=== PATIENT | male | born 1970 | race Caucasian/White ===

== ENCOUNTER 2018-12-06 17:12 | Emergency (ER) | payer MEDICAID ==
[2018-12-06] MEDS ORDERED: Lidocaine 1% 30 ML SDV INJECT ONE (17:27)
--- NOTE | 2018-12-06 18:44 | EDM.PDOC ---
ED HPI GENERAL MEDICAL PROBLEM - General Chief Complaint: Laceration Time Seen by Provider: 12/06/18 17:20 Source of Information: Reports: Patient History Limitations: Reports: No Limitations - History of Present Illness INITIAL COMMENTS - FREE TEXT/NARRATIVE: PtTonio presents to ER with complaints of a high-speed angle sample tester grinder injury to dorsum of L index finger. He states that his tetanus is UTD. He states that he lives in [place] but did not stop on [place] because he doesn't like that ER. He states that he is experiencing severe discomfort. He states that his ROM is within normal limits in the digit. Denies any numbness/tingling in the distal portion of the extremity. Onset: Today Onset Date: 12/06/18 Location: Reports: Upper Extremity, Left Quality: Reports: Sharp Severity: Severe - Related Data Allergies Allergy/AdvReac Type Severity Reaction Status Date / Time ketorolac [From Toradol] Allergy Hives Verified 12/06/18 18:45 Home Meds: Home Meds Gabapentin [Neurontin] 600 mg PO QID 07/02/16 [History] LORazepam [Ativan] 0.5 mg PO BID 07/02/16 [History] oxyCODONE HCl/Acetaminophen [Oxycodone-Acetaminophen 5-325] 1 each PO Q4HR PRN 07/02/16 [History] Past Medical History Neurological History: Reports: Seizure Psychiatric History: Reports: Anxiety, Depression, Schizophrenia - Infectious Disease History Infectious Disease History: Reports: Hepatitis C - Past Surgical History Musculoskeletal Surgical History: Reports: Other (See Below) Social & Family History - Caffeine Use Caffeine Use: Reports: Soda ED ROS GENERAL - Review of Systems Review Of Systems: ROS reveals no pertinent complaints other than HPI. ED EXAM, SKIN/RASH Exam: See Below Exam Limited By: No Limitations General Appearance: Alert, WD/WN, No Apparent Distress Extremities: Normal Capillary Refill, Other (1 cm laceration across dorsal proximal phalynx between MCP and PIP. No joint involvement. CMS intact. wound edges were macerated.) Skin: Warm, Dry, Intact, Normal Color, No Rash ED SKIN PROCEDURES - Laceration/Wound Repair Left Proximal Dorsal Digit - 2nd (Index) Lac/Wound length In cm: 1 Appearance: Linear, Mildly Contaminated Distal NVT: Neuro & Vascular Intact, No Tendon Injury Anesthetic Type: Local Local Anesthesia - Lidocaine (Xylocaine): 1% Plain Local Anesthetic Volume: 5cc Skin Prep: Chlorhexidine (Hibiciens), Saline Exploration/Debridement/Repair: Wound Explored, Minimal Debridement, Foreign Material Removed, Wound Margins Revised Closed with: Sutures Suture Size: 4-0 Suture Type: Nylon Course - Orders/Labs/Meds Meds: Medications Discontinued Medications Generic Name Dose Route Start Last Admin Trade Name Mary Ellen PRN Reason Stop Dose Admin Lidocaine HCl 30 ml 12/06/18 17:27 12/06/18 17:35 Xylocaine-Mpf 1% INJECT 12/06/18 17:28 30 ml ONETIME ONE Administration Departure - Departure Time of Disposition: 18:00 Disposition: Home, Self-Care 01 Clinical Impression: Laceration - Discharge Information Instructions: Laceration Care, Adult Referrals: PCP,Not In Area [Primary Care Provider] - Forms: ED Department Discharge Additional Instructions: Sutures out in 12 days Return if redness, swelling, or discharge from the finger. Keep open to air as much as possible. Tramadol 50mg 1 every 6 hours as needed for pain - Assessment/Plan Plan: Sutures out in 12 days Return if redness, swelling, or discharge from the finger. Keep open to air as much as possible. Tramadol 50mg 1 every 6 hours as needed for pain
[2018-12-06 18:55] VITALS: BP 133/94
== END 2018-12-06 18:00 | disposition home or self-care (01) ==
LOC: VM.ED 17:12
DX: S61.211A Laceration without foreign body of left index finger without damage to nail, initial encounter (principal); Z79.899 Other long term (current) drug therapy; Z88.5 Allergy status to narcotic agent; W31.89XA Contact with other specified machinery, initial encounter
CPT/HCPCS: 12001; 99282; J2001